=== PATIENT | female | born 1970 | race Native Hawaiian/Other Pacific Islander ===

== ENCOUNTER 2024-06-11 01:58 | Emergency (ER) | payer MEDICAID, SELFPAY ==
--- NOTE | ~2024-06-11 | CT_ITS ---
EXAMINATION: CT ABDOMEN AND PELVIS WITHOUT CONTRAST CLINICAL INFORMATION: Right flank pain. COMPARISON: None available. TECHNIQUE: Multidetector volumetric imaging was performed from the superior aspect of the liver through the pubic symphysis. Sagittal and coronal reformatted images were obtained on the technologist's workstation. This CT examination was performed using dose optimization techniques as appropriate, variously including the following: *Automated exposure control *Adjustment of mA and/or kV according to patient size (this includes techniques or standardized protocols for targeted exams where dose is matched to indication/reason for exam; i.e. extremities or head) *Use of iterative reconstruction technique DLP: 1383 mGy-cm FINDINGS: LUNG BASES: Lung bases are clear. There is a lobular opacity right breast measuring up to 4 cm. LIVER, GALLBLADDER, AND BILIARY TREE: The liver is normal in size, shape, and attenuation. No focal hepatic lesion or biliary ductal dilatation is present. There has been a prior cholecystectomy. PANCREAS: Unremarkable. SPLEEN: Unremarkable. ADRENAL GLANDS: Unremarkable. KIDNEYS AND URETERS: The kidneys are normal in size, shape, and attenuation. No hydronephrosis, hydroureter, or calculi seen. No perinephric stranding. BLADDER: Unremarkable. GASTROINTESTINAL TRACT: The small and large bowel are unremarkable. The appendix is unremarkable. ABDOMINAL WALL: There is a small umbilical hernia containing fat. LYMPH NODES: Normal. VASCULAR: Unremarkable. PELVIC VISCERA: There is a 4.7 cm right uterine body mass. OSSEOUS STRUCTURES: Unremarkable. CT/CT abdomen pelvis wo IV con IMPRESSION: 1. No evidence of renal or ureteral calculi. No hydronephrosis. 2. 4.7 cm right uterine body mass likely representing a fibroid. 3. Lobular opacity in the right breast measuring up to 4 cm. Recommend correlation with mammography and/or ultrasound. Fleischner guidelines were followed. Electronically signed by: Philip Kellogg MD 06/11/2024 05:28 AM BRENDA
[2024-06-11 02:00] VITALS: BP 148/84; PULSE 88; RESP 20; TEMP 36.4; O2SAT 97; BMI 58.3
--- NOTE | 2024-06-11 02:19 | MHC.EDTECH ---
Patient brought into triage area,labs drawn and sent to lab.pt was unable to give a urine sample at this time
[2024-06-11 02:24] LABS: MANUAL DIFF FLAG NO
[2024-06-11 02:25] LABS: Basophils Percent Auto 0.5 % (0-2); Eosinophils Absolute Auto 0.2 X10*3/uL (0.0-0.4); Eosinophils Percent Auto 2.5 % (0-4); Hematocrit 40.3 % (37.0-47.0); Hemoglobin 12.9 g/dl (12.0-16.0); Imm Gran Abs Auto 0.06 X10*3/uL (0.00-0.03); Imm Gran Pct Auto 0.8 % (0.0-0.4); Lymphocytes Absolute Auto 2.1 X10*3/uL (1.2-4.9); Lymphocytes Percent Auto 26.2 % (20-40); Mean Corpuscular Volume 81.3 fL (80.0-98.0); Monocytes Absolute Auto 0.6 X10*3/uL (0.1-1.2); Monocytes Percent Auto 7.3 % (2-11); Neutrophils Percent Auto 62.7 % (45-73); Platelet Count 348 X10*3/uL (160-400); Red Blood Count 4.96 X10*6/uL (4.20-5.50); Red Cell Distribution Width 14.9 % (11.0-16.0)
[2024-06-11 02:49] LABS: Albumin Level 4.4 g/dL (3.5-5.0); Anion Gap 17 (12-20); Aspartate Amino Transferase 19 U/L (5-31); Bilirubin Total 0.4 mg/dL (0.0-1.0); Blood Urea Nitrogen 23 mg/dL (9-16); Calcium 9.8 mg/dL (8.4-10.2); Carbon Dioxide 26 mmol/L (22-29); Chloride 102 mmol/L (96-108); Creatinine Clr Calc Pharmacy 85.1; Estimated Glomerular Filt Rate 44; Glucose Fasting 172 mg/dL (60-99); HCG Quantitative < 2 mIU/mL; Lipase 13 U/L (8-78); Potassium 4.1 mmol/L (3.3-5.1); Sodium 141 mmol/L (135-145); Total Protein 8.1 g/dL (6.5-8.0)
[2024-06-11 02:54] LABS: Alanine Aminotransferase 20 U/L (0-31); Alkaline Phosphatase 119 U/L (39-117)
--- NOTE | 2024-06-11 02:54 | ED_ITS ---
HPI - Abdominal Pain General Chief Complaint: Abdominal Pain Stated Complaint: side/back pain Time Seen by Provider: 06/11/24 02:53 Source: patient Mode of arrival: ambulatory Limitations: no limitations History of Present Illness ED Provider: HPI narrative: Patient obese with history of chronic back pain off and on comes here for increased pain in the right flank area started yesterday no urinary complaints no hematuria pain increases on movements and taking deep inspiration does have a family history of kidney stone in her sisters Related Data Previous Rx's ?Medication ?Instructions ?Recorded cyclobenzaprine 10 mg tablet 10 mg PO Q8H #20 tabs 06/11/24 tramadol 50 mg tablet 50 mg PO Q6H PRN pain #20 tabs 06/11/24 Allergies Allergy/AdvReac Type Severity Reaction Status Date / Time moxifloxacin Allergy Angioedema Verified 06/11/24 02:04 dulaglutide [From Trulicity] AdvReac Abdominal Verified 06/11/24 02:05 Pain liraglutide AdvReac Abdominal Verified 06/11/24 02:05 Pain Review of Systems Review of Systems Yes all other systems are reviewed and are negative [facility] Social History Social History Alcohol intake: never Smoked in Last 30 Days: No Use of substances other than those prescribed or required for medical reasons: No Advance Directives: No Advance Directives Information Provided: Yes Physical Exam ED Vital Signs: Vital Signs - 24 hr 06/11/24 02:00 06/11/24 06:19 Temperature 97.6 F 97.6 F Pulse Rate 88 80 Respiratory Rate 20 16 Blood Pressure 148/84 H 135/64 Pulse Oximetry 97 97 Oxygen Delivery Method Room Air Room Air BMI result Body Mass Index 58.3 Appearance: Alert. Oriented X3. No acute distress. Obese Eyes: PERRLA, No Nystagmus ENT: Pharynx normal. Oral Mucosa moist Neck: Normal inspection. Neck supple. CVS: Normal heart rate and rhythm. Pulses normal. Respiratory: No respiratory distress. Equal air entry bilateral, no wheezing/rales/rhonchi Abdomen: Soft and nontender. Bowel sounds are present, no mass palpable, right CVA tenderness no midline back tenderness Skin: Skin warm and dry. Normal skin color. Normal skin turgor. Extremities: No lower extremity edema. No calf tenderness Neuro: Oriented X 3. No motor deficit. No sensory deficit. Medical Decision Making Medical Decision Making [facility] Narrative: Patient's right flank pain CT scan negative for kidney stone urine is negative for any UTI patient felt better after pain medication patient does have fibrocystic right breast disease in the CT scan showed 4 cm mass likely from fibrocystic disease patient is aware of that and has a follow up plan Lab Data [facility] Lab Attestation statement: I reviewed the patient's lab results. 06/11/24 02:18 06/11/24 02:18 Labs: Lab Results 06/11/24 06/11/24 Range/Units 02:18 03:26 WBC 8.0 (4.8-10.8) X10*3/uL RBC 4.96 (4.20-5.50) X10*6/uL Hgb 12.9 (12.0-16.0) g/dl Hct 40.3 (37.0-47.0) % MCV 81.3 (80.0-98.0) fL MCH 26.0 L (27.0-33.0) pg MCHC 32.0 (31.0-35.0) g/dl RDW 14.9 (11.0-16.0) % Plt Count 348 (160-400) X10*3/uL MPV 10.0 (9.4-12.3) fL Immature Gran % (Auto) 0.8 H (0.0-0.4) % Neut % (Auto) 62.7 (45-73) % Lymph % (Auto) 26.2 (20-40) % [place] % (Auto) 7.3 (2-11) % Eos % (Auto) 2.5 (0-4) % Baso % (Auto) 0.5 (0-2) % Lymph # (Auto) 2.1 (1.2-4.9) X10*3/uL [place] # (Auto) 0.6 (0.1-1.2) X10*3/uL Eos # (Auto) 0.2 (0.0-0.4) X10*3/uL Baso # (Auto) 0.0 (0.0-0.2) X10*3/uL Abs Immat Gran (auto) 0.06 H (0.00-0.03) X10*3/uL Absolute Neuts (auto) 5.0 (2.0-8.3) x10*3/uL Absolute Nucleated RBC 0.000 (0.0-0.012) X10*3/uL Nucleated RBC % (auto) 0.0 (0.0-0.2) /100WBC Sodium 141 (135-145) mmol/L Potassium 4.1 (3.3-5.1) mmol/L Chloride 102 (96-108) mmol/L Carbon Dioxide 26 (22-29) mmol/L Anion Gap 17 (12-20) BUN 23 H (9-16) mg/dL Creatinine 1.26 (0.5-1.4) mg/dL Estim Creat Clear Calc 85.1 Estimated GFR 44 Fasting Glucose 172 H (60-99) mg/dL Calcium 9.8 (8.4-10.2) mg/dL Total Bilirubin 0.4 (0.0-1.0) mg/dL AST 19 (5-31) U/L ALT 20 (0-31) U/L Alkaline Phosphatase 119 H (39-117) U/L Total Protein 8.1 H (6.5-8.0) g/dL Albumin 4.4 (3.5-5.0) g/dL Lipase 13 (8-78) U/L Beta HCG, Quant < 2 mIU/mL Urine Color Yellow Urine Appearance Clear Urine pH 5.0 (5.0-9.0) Ur Specific [place] 1.010 (1.005-1.025) Urine Protein Negative (Neg-Trace) mg/dL Urine Glucose (UA) Negative (Negative) mg/dL Urine Ketones Negative (Negative) mg/dL Urine Blood Negative (Negative) Urine Nitrite Negative (Negative) Ur Leukocyte Esterase Negative (Negative) Urine RBC 0-2 (0-2) /HPF Urine WBC 0-5 (0-5) /HPF Ur Squamous Epith Cells 0-2 (0-2) /HPF Urine Bacteria None Seen (None Seen) Hyaline Casts 0-2 (0-2) /LPF Medications Administered Discontinued Medications Generic Name Dose Route Start Last Admin Trade Name Freq PRN Reason Stop Dose Admin Sodium Chloride 1,000 mls @ 999 mls/hr 06/11/24 03:07 06/11/24 04:47 Ns IV 06/11/24 04:07 Infused .Q1H1M ONE Infusion Ketorolac Tromethamine 30 mg 06/11/24 03:07 06/11/24 03:42 Ketorolac Tromethamine 30 Mg/Ml Vial IVPUSH 06/11/24 03:08 30 mg ONCE ONE Administration Morphine Sulfate 4 mg 06/11/24 03:07 06/11/24 03:41 Morphine Sulfate 4 Mg/Ml Cartridge IVPUSH 06/11/24 03:08 4 mg ONCE ONE Administration Protocol Ondansetron HCl 4 mg 06/11/24 03:07 06/11/24 03:41 Ondansetron Hcl 4 Mg/2 Ml Vial IVPUSH 06/11/24 03:08 4 mg ONCE ONE Administration Discharge Plan Discharge Clinical Impression: Back pain Patient Disposition: Home, Self-Care Instructions: Back Pain (ED) Additional Instructions: Cause of your back pain is likely muscular No kidney stone was seen Take pain medication muscle relaxant as prescribed Also in the CT scan does not mass seen in the right breast follow up with PCP and have mammogram and further evaluation Prescriptions: New cyclobenzaprine 10 mg tablet 10 mg PO Q8H Qty: 20 0RF tramadol 50 mg tablet 50 mg PO Q6H PRN (Reason: pain) Qty: 20 0RF Interventions: ED Discharge Assessment Last Done: 06/11/24 06:19 Discharge Date/Time: 06/11/24 06:21 Print Language: Slovenian
[2024-06-11 03:31] LABS: Appearance Urine Clear; Color Urine Yellow; Glucose Urine UA Negative (Negative); Leukocyte Esterase Urine Negative (Negative); Nitrite Urine Negative (Negative); Urine Blood Negative (Negative); Urine Ketones Negative (Negative); Urine Protein Negative (Neg-Trace)
[2024-06-11 03:36] LABS: Bacteria Urine None Seen (None Seen); Hyaline Casts Urine 0-2 /LPF (0-2); RBC Urine 0-2 /HPF (0-2); Squamous Epithelial Cell Urine 0-2 /HPF (0-2); WBC Urine 0-5 /HPF (0-5)
[2024-06-11] MEDS: Morphine Sulfate 4 MG/ML CARTRIDGE IVPUSH (03:41)
[2024-06-11] MEDS: ondansetron HCL 4 MG/2 ML VIAL IVPUSH (03:41)
[2024-06-11] MEDS: Ketorolac Tromethamine 30 MG/ML VIAL IVPUSH (03:42)
[2024-06-11] MEDS: 0.9 % Sodium Chloride 1,000 ML 999 ML IV (03:46)
[2024-06-11 06:19] VITALS: BP 135/64; PULSE 80; RESP 16; TEMP 36.4; O2SAT 97
== END 2024-06-11 06:21 | disposition home or self-care (01) ==
PROVIDERS: Emergency Provider Internal Medicine
DX: M54.9 Dorsalgia, unspecified (principal); R10.9 Unspecified abdominal pain
CPT/HCPCS: 36415; 74176; 80053; 81001; 83690; 84702; 85025; 96361; 96374; 96375; 99284; 99285; J1885; J2270; J2405